=== PATIENT | female | born 1965 | race Asian ===

== ENCOUNTER → 2017-01-20 | Outpatient (CLI) | payer BC | LOC: FIMAGING 08:13 | PROVIDERS: ATTEND Internal Medicine | DX: Z12.31 Encounter for screening mammogram for malignant neoplasm of breast (principal) | CPT/HCPCS: G0202 ==

== ENCOUNTER → 2018-01-22 | Outpatient (CLI) | payer BC | LOC: FIMAGING 08:03 | PROVIDERS: ATTEND Internal Medicine | DX: Z12.31 Encounter for screening mammogram for malignant neoplasm of breast (principal); Z80.3 Family history of malignant neoplasm of breast ==

== ENCOUNTER → 2018-08-31 | Outpatient (CLI) | payer BC | LOC: FIMAGING 08:15 | PROVIDERS: ATTEND Urology | DX: N20.0 Calculus of kidney (principal); N13.30 Unspecified hydronephrosis ==

== ENCOUNTER → 2018-09-06 | Outpatient (CLI) | payer BC | LOC: FIMAGING 15:42 | PROVIDERS: ATTEND Urology | DX: N13.2 Hydronephrosis with renal and ureteral calculous obstruction (principal); K59.00 Constipation, unspecified ==

== ENCOUNTER 2018-09-07 17:37 | Day surgery (SDC) | payer BC ==
[2018-09-07] MEDS ORDERED: LR 1,000 ML IV ONE (17:53)
[2018-09-07] MEDS ORDERED: IOPAMIDOL (ISOVUE-M 300) 15 ML VIAL ONE (19:12)
[2018-09-07] MEDS ORDERED: LIDOCAINE 2% JELLY 20 ML (UROJECT) ONE (19:14)
[2018-09-07] MEDS ORDERED: PROPOFOL 200 MG/20 ML VIAL ONE (20:26)
[2018-09-07] MEDS ORDERED: CEFAZOLIN 2 GM/DEXTROSE/100 ML BAG IV ONE (20:28)
[2018-09-07] MEDS ORDERED: PROPOFOL/EMULSION 500 MG/50 ML BOTTLE IV ONE (20:29)
--- NOTE | 2018-09-07 20:29 | PDANEPAE ---
ANE History of Present Illness nephrolithiasis with bilateral ureteral obstruction ANE Past Medical History - Cardiovascular History Hx Hypertension: No Hx Arrhythmias: No Hx Chest Pain: No Hx Coronary Artery / Peripheral Vascular Disease: No Hx CHF / Valvular Disease: No Hx Palpitations: No - Pulmonary History Hx COPD: No Hx Asthma/Reactive Airway Disease: No Hx Recent Upper Respiratory Infection: No Hx Oxygen in Use at Home: No Hx Sleep Apnea: No - Neurologic History Hx Cerebrovascular Accident: No Hx Seizures: No Hx Dementia: No - Endocrine History Hx Diabetes: No Hypothyroid: No Hyperthyroid: No Obesity: no - Renal History Hx Renal Disorders: Yes Renal History Comment: nephrolithiasis - Liver History Hx Hepatic Disorders: No - Neurological & Psychiatric Hx Hx Neurological and Psychiatric Disorders: No - Cancer History Hx Cancer: No - Congenital Disorder History Hx Congenital Disorders: No - GI History GERD: no Hx Gastrointestinal Disorders: No - Chronic Pain History Chronic Pain: No - Surgical History Prior Surgeries: CARPAL TUNNEL. LITHOTRIPSY. CSECTION ANE Review of Systems Review of systems is: negative Review of Systems: - Exercise capacity Exercise capacity: >=4 METS METS (RN): 4 METS ANE Patient History - Allergies Allergies/Adverse Reactions: latex Allergy (Verified 01/08/15 19:13) - Home Medications Home medications: home medication list seen and reviewed Home Medications: Magnesium 09/07/18 [Last Taken 09/07/18] - NPO status NPO Status: no food or drink >8 hours NPO Since - Liquids (Date): 09/07/18 NPO Since - Liquids (Time): 12:45 NPO Since - Solids (Date): 09/07/18 NPO Since - Solids (Time): 16:00 - Anes Hx Anes Hx: no prior problems - Smoking Hx Smoking Status: Never smoked - Family Anes Hx Family Hx Anesthesia Complications: NONE ANE Labs/Vital Signs - Vital Signs Vital Signs: reviewed preoperatively; see RN documention for details Blood Pressure: 146/87 Heart Rate: 65 Respiratory Rate: 16 O2 Sat (%): 98 Height: 152.4 cm Weight: 59.24 kg ANE Physical Exam - Airway Neck exam: FROM Mallampati Score: Class 2 Mouth exam: normal dental/mouth exam - Pulmonary Pulmonary: no respiratory distress - Cardiovascular Cardiovascular: regular rate and rhythym - ASA Status ASA Status: II ANE Anesthesia Plan Anesthesia Plan: GA w LMA
--- NOTE | 2018-09-07 20:31 | PDHPUP ---
History & Physical Update H&P update statement: This history and physical update is based on an assessment of the patient which was completed after admission or registration (within 24 hours), but prior to the surgery/procedure. H&P update: H&P reviewed & patient examined, no change in patient's condition since H&P completed (Heart regular rate, Lungs normal)
[2018-09-07] MEDS ORDERED: DEXAMETHASONE 4 MG/ML VIAL ONE (20:34)
[2018-09-07] MEDS ORDERED: KETOROLAC 30 MG/1 ML SDV ONE (20:34)
[2018-09-07] MEDS ORDERED: fentaNYL 100 MCG/2 ML INJ ONE (20:34)
[2018-09-07] MEDS ORDERED: ONDANSETRON 4 MG/2 ML VIAL ONE (20:34)
[2018-09-07] MEDS ORDERED: OPIUM/BELLADONNA ALKALO SUPP PR ONE ×2 (20:44→21:00)
[2018-09-07] MEDS ORDERED: ceFAZolin 2 GM/DEXTROSE 100 ML IV ONE (20:44)
[2018-09-07] MEDS ORDERED: METOCLOPRAMIDE 10 MG/2 ML VIAL IVP PRN (21:05)
[2018-09-07] MEDS ORDERED: oxyCODONE IR 5 MG TAB PO PRN (21:05)
[2018-09-07] MEDS ORDERED: LR 500 ML IV PRN (21:05)
[2018-09-07] MEDS ORDERED: NALOXONE HCL 0.4 MG/ML INJ IVP PRN (21:05)
[2018-09-07] MEDS ORDERED: LABETALOL HCL 5 MG/ML 20 ML MDV IVP PRN (21:05)
[2018-09-07] MEDS ORDERED: PHENYLEPHRINE HCL 100 MCG/ML SYR IVP PRN (21:05)
[2018-09-07] MEDS ORDERED: fentaNYL 100 MCG/2 ML INJ IVP PRN (21:05)
[2018-09-07] MEDS ORDERED: ACETAMINOPHEN 500 MG TAB PO PRN (21:05)
[2018-09-07] MEDS ORDERED: ONDANSETRON 4 MG/2 ML VIAL IVP PRN (21:05)
[2018-09-07] MEDS ORDERED: ALBUTEROL 3 ML DEYVIAL IH PRN (21:05)
[2018-09-07] MEDS ORDERED: HYDROmorphONE/DILAUDID 1 MG/ML INJ IVP PRN (21:05)
[2018-09-07] MEDS ORDERED: DEXAMETHASONE 4 MG/ML VIAL IVP PRN (21:05)
[2018-09-07] MEDS ORDERED: MEPERIDINE 25 MG/0.5 ML AMP IVP PRN (21:05)
[2018-09-07] MEDS ORDERED: PROMETHAZINE HCL 25 MG/ML INJ IVP PRN (21:05)
--- NOTE | 2018-09-07 21:28 | POSTANESTH ---
Post Anesthetic Evaluation Cardiovascular Status: Normal, Stable Respiratory Status: Normal, Stable Level of Consciousness/Mental Status: Can Participate in Eval Pain Control: Adequate, Prn Tx Ordered Nausea/Vomiting Control: Adequate, Prn Tx Ordered Complications Possibly Related to Anesthesia: None Noted
[2018-09-07 22:21] VITALS: BP 107/72
--- NOTE | 2018-09-07 22:26 | POSTOPPROG ---
Post Op Note Date of Operation: 09/07/18 Surgeon: April Mccallum Anesthesia: LMA Pre-op Diagnosis: Bilateral ureteral obstruction, hydronephrosis Post-op Diagnosis: same Indication: Bilateral ureteral obstruction, hydronephrosis Procedure: cystoscopy, bilateral ureteral stent placement, R RGP Findings: bilateral ureteral stones, R hydronephrosis Inf/Abcess present in the surg proc area at time of surgery?: No EBL: Minimal Complications: None, patient tolerated procedure well
--- NOTE | 2018-09-07 23:39 | GOP ---
[f rep st] OPERATIVE REPORT DATE OF OPERATION: 09/07/2018 SURGEON: April Mccallum MD ANESTHESIA: LMA. PREOPERATIVE DIAGNOSIS: Bilateral ureteral obstruction, bilateral hydronephrosis. POSTOPERATIVE DIAGNOSIS: Bilateral ureteral obstruction, bilateral hydronephrosis. PROCEDURE PERFORMED: Cystoscopy, bilateral ureteral stent placement, right retrograde pyelogram. FINDINGS: Bilateral ureteral stones and right hydronephrosis. The wire initially would not go past the right stone, but I was able to manipulate the stone up into the renal pelvis with a 5-Hong Konger open -ended catheter and place a stent. ESTIMATED BLOOD LOSS: Minimal. INDICATIONS: This is a patient of mine who presented for evaluation of stone burden. A CT scan was obtained, and she had bilateral ureteral stones and bilateral hydronephrosis yesterday. She is asymp tomatic with a normal creatinine, but given the bilateral obstruction, I felt it was necessary to antione ce bilateral stents as soon as possible. The patient understood the rationale, risks, and benefits o f the procedure and agreed to proceed. DESCRIPTION OF PROCEDURE: The patient was taken back to the cystoscopy suite, placed on the cystosco py table in supine position. General anesthesia was induced without complication. Time-out performe d. Core measures satisfied including placement of a Clifford Hugger, SCDs, and administration of 2 g Anc ef antibiotic. She was brought to the end of the table, placed in dorsal lithotomy position, and all pressure points padded. Genitalia draped and prepped in a standard surgical fashion with Betadine. Rigid cystoscope easily cannulated the urethral meatus and advanced atraumatically into the bladder. Pancystoscopy performed, and there were no masses, lesions, cellules, or abnormalities. Right and left ureteral orifices were in their expected anatomical positions. A 5-H[place] Konger open-ended catheter w as used to help cannulate with a wire the left collecting system. With fluoroscopic guidance, wire a dvanced up to the renal pelvis. Then, a 6-H[place] Konger multivariable stent was placed with fluoroscopic an d cystoscopic guidance without difficulty. Attention was then placed on the right collecting system. A 0.065 Glidewire cannulated the right ureteral orifice, but it was unable to advance past the ston e that was easily seen on fluoroscopy in the mid to proximal ureter. I then advanced a 5-[place] Konger open -ended catheter up to the level of the stone. I was able to push the stone into the renal pelvis, an d then the wire was able to be placed into the renal pelvis. The 5-[place] Konger open-ended catheter was ad vanced into the renal pelvis to do a retrograde to verify that indeed I was in the pelvis given it wa s extremely hydronephrotic. On fluoro, again, the massive hydronephrosis of the right was demonstrat ed. The wire was now in place. I removed the 5-Hong Konger open-ended catheter and then placed a 6-Frenc h multivariable stent over the wire with nice curl in the pelvis and nice curl in the bladder. Her b ladder was then emptied. At this point, the procedure considered complete. Lidocaine jelly was inst illed per urethra, belladonna and opium suppository per rectum. She was awoken from anesthesia and t ransferred to the PACU in good condition. COMPLICATIONS: None. The patient tolerated the procedure well. /[id number]/MODL
== END 2018-09-07 22:40 | disposition home or self-care (01) ==
LOC: FSGY 17:37
PROVIDERS: ATTEND Urology
PROC: BT141ZZ Fluoroscopy of Kidneys, Ureters and Bladder using Low Osmolar Contrast (ICD-10-PCS; principal; 2018-09-07 21:00)
PROC: 0T9880Z Drainage of Bilateral Ureters with Drainage Device, Via Natural or Artificial Opening Endoscopic (ICD-10-PCS; principal; 2018-09-07 21:00)
DX: N13.2 Hydronephrosis with renal and ureteral calculous obstruction (principal); Z87.442 Personal history of urinary calculi
CPT/HCPCS: 52332; 52352; 76000; C1758; C1769; C2625; J0690; J1100; J1885; J2405; J2704; J3010; Q9967

== ENCOUNTER 2018-09-12 12:59 | Day surgery (SDC) | payer BC ==
[2018-09-12] MEDS ORDERED: LIDOCAINE 2% JELLY 20 ML (UROJECT) ONE (13:16)
[2018-09-12] MEDS ORDERED: OPIUM/BELLADONNA ALKALO SUPP PR ONE (13:17)
[2018-09-12] MEDS ORDERED: IOPAMIDOL (ISOVUE-M 300) 15 ML VIAL ONE ×2 (13:17→16:25)
[2018-09-12] MEDS ORDERED: ceFAZolin 2 GM/DEXTROSE 100 ML IV ONE (13:27)
[2018-09-12] MEDS ORDERED: OPIUM/BELLADONNA ALKALO SUPP PR PRN (13:27)
[2018-09-12] MEDS ORDERED: LR 1,000 ML IV ONE (13:46)
--- NOTE | 2018-09-12 13:51 | PDANEPAE ---
ANE Past Medical History - Cardiovascular History Hx Hypertension: No Hx Arrhythmias: No Hx Chest Pain: No Hx Coronary Artery / Peripheral Vascular Disease: No Hx CHF / Valvular Disease: No Hx Palpitations: No - Pulmonary History Hx COPD: No Hx Asthma/Reactive Airway Disease: No Hx Recent Upper Respiratory Infection: No Hx Oxygen in Use at Home: No Hx Sleep Apnea: No Sleep Apnea Screening Result - Last Documented: Negative - Neurologic History Hx Cerebrovascular Accident: No Hx Seizures: No Hx Dementia: No - Endocrine History Hx Diabetes: No Obesity: no - Renal History Hx Renal Disorders: Yes Renal History Comment: nephrolithiasis. hx of kidney stones - Liver History Hx Hepatic Disorders: No - Neurological & Psychiatric Hx Hx Neurological and Psychiatric Disorders: No - Cancer History Hx Cancer: No - Congenital Disorder History Hx Congenital Disorders: No - GI History GERD: no Hx Gastrointestinal Disorders: No - Chronic Pain History Chronic Pain: No - Surgical History Prior Surgeries: 09/07/18 bilateral ureteral stents with Fronczak. CARPAL TUNNEL. LITHOTRIPSY. CSECTION ANE Review of Systems Review of Systems: - Exercise capacity METS (RN): 4 METS ANE Patient History - Allergies Allergies/Adverse Reactions: latex Allergy (Verified 01/08/15 19:13) - Home Medications Home medications: home medication list seen and reviewed Home Medications: Magnesium 09/07/18 [Last Taken 09/07/18] - NPO status NPO Status: no food or drink >8 hours NPO Since - Liquids (Date): 09/12/18 NPO Since - Liquids (Time): 11:00 NPO Since - Solids (Date): 09/11/18 NPO Since - Solids (Time): 23:00 - Anes Hx Anes Hx: no prior problems - Smoking Hx Smoking Status: Never smoked - Family Anes Hx Family Hx Anesthesia Complications: NONE ANE Labs/Vital Signs - Vital Signs Blood Pressure: 135/86 Heart Rate: 74 Respiratory Rate: 16 O2 Sat (%): 99 Height: 152.4 cm Weight: 59.24 kg ANE Physical Exam - Airway Neck exam: FROM Mallampati Score: Class 2 Mouth exam: normal dental/mouth exam - Pulmonary Pulmonary: no respiratory distress, no rales or rhonchi, clear to auscultation - Cardiovascular Cardiovascular: regular rate and rhythym, no murmur, rub, or gallop - ASA Status ASA Status: II ANE Anesthesia Plan Anesthesia Plan: GA w LMA
[2018-09-12] MEDS ORDERED: fentaNYL 100 MCG/2 ML INJ ONE (14:23)
[2018-09-12] MEDS ORDERED: PROPOFOL 200 MG/20 ML VIAL ONE (14:23)
[2018-09-12] MEDS ORDERED: DEXAMETHASONE 4 MG/ML VIAL ONE ×3 (14:24→14:25)
[2018-09-12] MEDS ORDERED: ONDANSETRON 4 MG/2 ML VIAL ONE (14:25)
[2018-09-12] MEDS ORDERED: LIDOCAINE 2% 2 ML INJ ONE (14:26)
--- NOTE | 2018-09-12 14:55 | PDHPUP ---
History & Physical Update H&P update statement: This history and physical update is based on an assessment of the patient which was completed after admission or registration (within 24 hours), but prior to the surgery/procedure. H&P update: H&P reviewed & patient examined, no change in patient's condition since H&P completed (Here for definitive tx of bilateral ureteral/renal stones. )
[2018-09-12] MEDS ORDERED: HYDROCODONE/APAP 5/325 TAB PO PRN (17:25)
[2018-09-12] MEDS ORDERED: ONDANSETRON 4 MG/2 ML VIAL IVP PRN (17:25)
[2018-09-12] MEDS ORDERED: ACETAMINOPHEN 500 MG TAB PO PRN (17:25)
[2018-09-12] MEDS ORDERED: NALOXONE HCL 0.4 MG/ML INJ IVP PRN (17:25)
[2018-09-12] MEDS ORDERED: PROMETHAZINE HCL 25 MG/ML INJ IVP PRN (17:25)
[2018-09-12] MEDS ORDERED: LR 500 ML IV PRN (17:25)
[2018-09-12] MEDS ORDERED: MEPERIDINE 25 MG/0.5 ML AMP IVP PRN (17:25)
[2018-09-12] MEDS ORDERED: fentaNYL 100 MCG/2 ML INJ IVP PRN (17:25)
--- NOTE | 2018-09-12 18:29 | POSTANESTH ---
Post Anesthetic Evaluation Cardiovascular Status: Normal, Stable, Similar to Pre-Op Cond Respiratory Status: Normal, Stable, Similar to Pre-op Cond. Level of Consciousness/Mental Status: Can Participate in Eval, Alert and Oriented Pain Control: Adequate, Prn Tx Ordered Nausea/Vomiting Control: Adequate, Prn Tx Ordered Complications Possibly Related to Anesthesia: None Noted
--- NOTE | 2018-09-12 18:42 | POSTOPPROG ---
Post Op Note Date of Operation: 09/12/18 Surgeon: April Mccallum Anesthesiologist: Dr. Ross Anesthesia: GET(General Endotracheal) Pre-op Diagnosis: bilateral renal and left ureteral stone, nephrocalcinosis Post-op Diagnosis: same Indication: bilateral renal and left ureteral stone, nephrocalcinosis Procedure: cysto, bilateral ureteroscopy,laser lithotripsy,stents, basket ext stone Findings: bilateral renal stones and left impacted ureteral stone Inf/Abcess present in the surg proc area at time of surgery?: No EBL: Minimal Complications: none, patient tolerated procedure well Specimen(s): stones
[2018-09-12 19:35] VITALS: BP 128/72
--- NOTE | 2018-09-13 11:35 | GOP ---
[f rep st] OPERATIVE REPORT DATE OF OPERATION: 09/12/2018 SURGEON: April Mccallum MD ANESTHESIA: General. ANESTHESIOLOGIST: Dr. Ross PREOPERATIVE DIAGNOSIS: Bilateral renal and left ureteral stone, nephrocalcinosis. POSTOPERATIVE DIAGNOSIS: Bilateral renal and left ureteral stone, nephrocalcinosis. PROCEDURE PERFORMED: Cystoscopy, bilateral ureteroscopy, laser lithotripsy, basket extraction of sto ne, placement of stents, intraoperative fluoroscopy, and retrograde pyelograms. FINDINGS: Bilateral renal stones, significant stone burden, and left impacted ureteral stone. She h ad a right sizable proximal stone that was obstructing the right system last week and I did place a s tent at last week and was able to move the stone up into the renal pelvis, but there was area of sign ificant edema where the stone obviously had been lodged for quite some time in the right proximal ure ter and retrograde showed a bilaterally dilated system. SPECIMENS: Stones. ESTIMATED BLOOD LOSS: Minimal. INDICATIONS: The patient presented to my office just for routine followup a couple of weeks ago, sta ting she makes quite a bit of stones. This was my first time meeting this patient and so I felt it a ppropriate to get a renal ultrasound and a KUB just to check for stone burden as she said she had sig nificant stones in the past with bilateral obstruction. I got a renal ultrasound. There was bilater al hydronephrosis. I then followed that up with a CT scan showing left distal ureteral calculus with left hydronephrosis and obstruction, and right proximal ureteral calculus with associated hydronephr osis and hydroureter. She had also lots of stone burden in the right and left kidneys, as well as ev idence of nephrocalcinosis on imaging, so when I saw this imaging, I then had her come in and we plac ed bilateral stents to decompress the system. Of note, her creatinine was 0.8 at the time, which is normal. I then brought her back today for bilateral ureteroscopy and clearance of stone. The ration marlen, risks, and benefits, including bleeding, infection, pain, injury to the urethra, bladder, the ur eters, need for subsequent procedures, inability to place stents, need for IR procedure to place a pe rcutaneous nephrostomy tube were all discussed with the patient and she understood these and agreed t o proceed. DESCRIPTION OF PROCEDURE: She was taken back to the cystoscopy suite, placed on the cystoscopy table in supine position. General anesthesia induced without complication. Time-out performed. Core alejandra sures satisfied, including placement of a Clifford Hugger, SCDs, and administration of 2 g Ancef antibiot ics. She was brought to the end of the table, placed in the dorsal lithotomy position. All pressure points padded. Genitalia draped and prepped in a standard surgical fashion with Betadine. Rigid cystoscope easily cannulated the urethral meatus and was advanced atraumatically into the bladd er. There were no stones in the bladder, no abnormalities. I decided to do the left side first, so I grasped the stent, externalized distally, and placed the wire through the lumen of the stent in the left collecting system with fluoroscopic guidance, and then with cystoscopic and fluoroscopic cassandra petty, placed a second Glidewire into the left collecting system. I used a Rascon catheter to decompress the bladder and then advanced a rigid ureteroscope into the left collecting system, encountered the distal stone, was able to laser this and remove it in its entirety. I still had 2 wires up and I was able to look all the way up with the rigid scope to the left ureteropelvic junction. There was no o ther stone fragments. I then removed the scope, had 2 wires up and then with fluoroscopic and cystoscopic guidance, placed a 12/14-Afghan ureteral access sheath in the left collecting system. I advanced a flexible ureterosc ope into the left collecting system and found multiple stones, large stones that needed lasering, and some were just able to be basket extracted. She had lots of evidence of nephrocalcinosis in the amanda ices with stone crystals that were visible and I did not treat these as this would mean lasering the calices, which could lead to injury to their collecting system, so I did though remove all the stones that were visible in the renal pelvis and the calices. I basket extracted for over an hour for ston es on the left side. At the end, I felt she had excellent clearance on the left. I then had still 2 wires up and placed a 6-Afghan multivariable stent with fluoroscopic and cystoscopic guidance. I then proceeded to the right side. I externalized that distal end of the stent, placed 2 Glidewires up into the right collecting system, 1 through the stent and 1 with fluoroscopic and cystoscopic celsa españa. I then advanced a 12/14-Afghan ureteral access sheath into the right collecting system up to the right ureteropelvic junction. There was no friction or problems advancing this sheath. I then a dvanced a flexible ureteroscope in the collecting system and encountered multiple stones, some again were able to be basket extracted without lasering, but there was a large stone that was the 1 that viry s caught her ureter last week that I had to laser and there were several other larger stones that req uired lasering. Again, I spent over an hour and a half on this side lasering the stone and basket ex tracting. At the end of the procedure, I felt she had excellent clearance and I removed the ureteros cope with the sheath together, examining the wall of the ureter. There was edema where that larger s tone was lodged seen on the CT scan in the proximal right ureter, but there was no scarring and no st ricturing that I could see. As I removed the sheath and the scope together, I did encounter another stone that must have come jax n. I attempted to basket this at this point, but it flew up in the right collecting system, and I atkins d to readvance my access sheath into the right collecting system again. I found the stone, had to la ser it, and removed it. At the end of the procedure, I truly feel I had cleared her stones on the ri ght. Again, the calices on the right showed evidence of nephrocalcinosis, which with crystals and no t truly stones, but just stone sediment sort of attach to the collecting system there. I removed the sheath again with the scope together, examined the wall of the ureter. Besides the area of edema wh ere the stone had been lodged proximally, there was no other abnormalities. I had still 2 wires up a nd placed a 6-Afghan multivariable stent with fluoroscopic and cystoscopic guidance. I, of note, also did retrograde pyelograms on each side, which I forgot to mention on the left-sided dictation, so I did do retrograde pyelogram on the left and the right, and there was hydronephrosis, hydroureter, but no filling defects at the end. At the end, there were 2 nicely placed stents. Ther e was stone sediment in the bladder, which I removed, and I should note that when I removed the left distal stone, it was quite impacted with tissue growing around it indicating that it had been there f or quite some time, but it did remove in its entirety in the end, and I again feel I cleared her of s tones in the right and left, except for the stones that are attached to the calices. Her bladder was then emptied. Lidocaine jelly placed per urethra and belladonna and opium placed per rectum. She was awoken from anesthesia and transferred to PACU in good condition. COMPLICATIONS: None, the patient tolerated the procedure well. /[id number]/MODL
== END 2018-09-12 19:54 | disposition home or self-care (01) ==
LOC: FSGY 12:59
PROVIDERS: ATTEND Urology
PROC: BT141ZZ Fluoroscopy of Kidneys, Ureters and Bladder using Low Osmolar Contrast (ICD-10-PCS; principal; 2018-09-12 14:15)
PROC: 0TC68ZZ Extirpation of Matter from Right Ureter, Via Natural or Artificial Opening Endoscopic (ICD-10-PCS; principal; 2018-09-12 14:15)
PROC: 0TC78ZZ Extirpation of Matter from Left Ureter, Via Natural or Artificial Opening Endoscopic (ICD-10-PCS; principal; 2018-09-12 14:15)
PROC: 0T9880Z Drainage of Bilateral Ureters with Drainage Device, Via Natural or Artificial Opening Endoscopic (ICD-10-PCS; principal; 2018-09-12 14:15)
DX: N13.2 Hydronephrosis with renal and ureteral calculous obstruction (principal)
CPT/HCPCS: 52356; 76000; C1758; C1769; C1894; 82365-90; C2625; J0690; J1100; J2405; J2704; J3010; Q9967

== ENCOUNTER → 2018-10-23 | Outpatient (CLI) | payer BC | LOC: FIMAGING 16:07 ==